=== PATIENT | female | born 1990 | race Caucasian/White ===

== ENCOUNTER 2017-01-12 08:54 | Emergency (ER) | payer OTHER ==
[~2017-01-12] VITALS: Ht 162.6 cm; Wt 88.5 kg
[2017-01-12 09:02] VITALS: Ht 162.6 cm; Wt 88.5 kg
[2017-01-12] MEDS ORDERED: ALBUT/IPRATROP 3MG/0.5MG NEB 3 ML VIAL ONE (09:11)
[2017-01-12] MEDS ORDERED: METHYLPREDNISOLONE 125 MG VIAL IV STA (09:21)
[2017-01-12 09:32] VITALS: O2SAT 88
[2017-01-12 09:41] LABS: BASO % 0.2 %; BASO ABS # 0.04 K/uL (0-0.2); COMPLETE YES; EOS % 2.7 %; HEMATOCRIT 47.5 % (37-47); IG% 0.4 %; LYMPH % 9.7 %; LYMPH ABS # 2.08 K/uL (1.2-3.4); MEAN CELL VOLUME 89.1 fL (80-100); MEAN CORPUSCULAR HEMOGLOBIN 32.6 pg (25-34); MEAN CORPUSCULAR HGB CONC 36.6 g/dl (32-36); MEAN PLATELET VOLUME 9.6 fL (7.4-10.4); PLATELET COUNT 325 K/uL (130-400); RED BLOOD COUNT 5.33 M/uL (4.2-5.4)
[2017-01-12 09:59] LABS: BUN/CREATININE RATIO 10.6 (10-20); CALCIUM 9.6 mg/dl (8.5-10.1); CREATININE 0.9 mg/dl (0.60-1.20); POTASSIUM 4.4 mmol/L (3.5-5.1)
[2017-01-12] MEDS ORDERED: ALBUT/IPRATROP 3MG/0.5MG NEB 3 ML VIAL INH STA ×2 (10:20→11:25)
--- NOTE | 2017-01-12 10:36 | DIAGNOSTIC IMAGING REPORT ---
TWO VIEW CHEST CLINICAL HISTORY: Atypical chest pain. Dyspnea. FINDINGS: PA and lateral chest radiographs are obtained. No prior studies are available for comparison at the time of dictation. The cardiomediastinal silhouette is unremarkable. The lungs and pleural spaces are clear. There is no pneumothorax. The bony thorax appears intact. IMPRESSION: No active disease in the chest. Electronically signed by: Gaston Shankar M.D. 01/12/2017 10:35 AM Dictated Date/Time: 01/12/2017 10:34 AM
[2017-01-12] MEDS ORDERED: CLR10 PO (11:06)
[2017-01-12] MEDS ORDERED: SODIUM CHLORIDE 0.9% 1000ML 500 ML IV STA (11:56)
[2017-01-12] MEDS ORDERED: OPTIRAY 320 IV PRN (12:00)
--- NOTE | 2017-01-12 13:01 | DIAGNOSTIC IMAGING REPORT ---
CT ANGIOGRAPHY OF THE CHEST, PULMONARY EMBOLUS PROTOCOL CLINICAL HISTORY: Wheezing, shortness of breath. Allergic reaction. COMPARISON STUDY: Chest radiograph performed earlier today. TECHNIQUE: Following IV administration of 93 mL of Optiray-320, helical axial images of the chest were obtained utilizing the pulmonary embolus protocol. Maximal intensity projections and sagittal and coronal reformats were viewed on an independent 3D workstation. IV contrast was administered without complication. A dose lowering technique was utilized adhering to the principles of ALARA. CT DOSE: 556.96 mGycm FINDINGS: No pulmonary emboli are identified. The size of the heart is normal. There is no pericardial effusion. There is no evidence of thoracic aortic dissection. There is a small to moderate amount of pneumomediastinum. No pneumothorax or pleural effusion is identified. There are mild multifocal airspace opacities within the lungs which suggest an infectious process. There is no cavitation. The bony thorax and upper abdomen are unremarkable. No enlarged thoracic lymph nodes are present. IMPRESSION: 1. No pulmonary emboli identified. 2. Mild to moderate pneumomediastinum of uncertain etiology. No pleural effusion or pneumothorax. 3. Mild multifocal airspace opacities within the lungs which suggest multifocal pneumonia. Electronically signed by: Arden Luis M.D. 01/12/2017 1:00 PM Dictated Date/Time: 01/12/2017 12:50 PM
[2017-01-12] MEDS ORDERED: PIPERACILLIN/TAZOBACTAM 4.5 GM/100ML D5W IV STA (13:17)
[2017-01-12] MEDS ORDERED: VANCOMYCIN INJ 2,250 MG in SODIUM CHLORIDE 0.9% 500ML 500 ML IV ONE (13:30)
[2017-01-12] MEDS ORDERED: ACETAMINOPHEN 500 MG TAB PO STA (14:02)
[2017-01-12 14:03] VITALS: TEMP 37.9
[2017-01-12] MEDS ORDERED: SODIUM CHLORIDE 0.9% 1000ML 1,000 ML IV STA (14:29)
[2017-01-12] MEDS ORDERED: LEVOFLOXACIN / D5W 750 MG IV ONE (14:30)
--- NOTE | 2017-01-12 15:08 | EMERGENCY ROOM VISIT NOTE ---
History First contact with patient: 09:05 Chief Complaint: SHORTNESS OF BREATH Stated Complaint: ALERGIC REACTION, TIGHT CHEST, HARD TO BREATH Nursing Triage Summary: Pt states, "My chest tight and I am having a heard time breathing. I recently moved to [place] and left my neb behind. Normally that would do the trick. A couple years ago I got a viral cold that they told me was similar to asthma. I had to get a neb and steroid pack. Every once in awhile I get this. It started yesterday." History of Present Illness Patient is a 26-year-old white female without significant past medical history who presents to the emergency department for evaluation of chest tightness and shortness of breath that began acutely yesterday morning. She states that she was feeling well prior to that and was in her usual state of health. She states that she noticed she was hard time breathing and some tightness in her chest. She has not been ill with any cold or upper respiratory symptoms, but does suffer from seasonal/environmental allergies for which she takes Claritin. The patient previously had a nebulizer machine with albuterol, which she was prescribed after a bronchitis illness. She has used this sporadically in the past, and it states that if she had it she would have used it yesterday, but she did not bring it with her when she moved locally about 3 weeks ago. She reports an infrequent, dry cough cough. She feels that it is difficult to take a full deep breath and she can hear herself wheezing. She denies any calf or leg pain or swelling, no recent prolonged travel or immobilization, and no oral contraceptives use. She is a former smoker. No personal or family history of DVT or PE. She has not had a fever. She denies any exposures to any potential allergy triggers. Review of Systems Review of systems as per HPI. All other systems reviewed were negative. 10 systems reviewed. Past Medical/Surgical History Medical Problems: (1) No Known Active Medical Problems The patient does not have any old records at our facility for review. Social History Smoking Status: Former Smoker Alcohol Use: none Housing Status: lives with family Occupation Status: employed Current/Historical Medications Scheduled Loratadine (Claritin), 10 MG PO DAILY Physical Exam Vital Signs Date Time Temp Pulse Resp B/P (MAP) Pulse Ox O2 Delivery O2 Flow Rate FiO2 01/12/17 15:35 116 23 93 Nasal Cannula 2.0 7/28/17 15:30 114 21 93 01/12/17 15:00 114 26 92 01/12/17 14:14 119 01/12/17 14:10 120 25 142/73 94 Nasal Cannula 2.0 01/12/17 14:03 37.9 01/12/17 12:53 124 24 91 Nasal Cannula 2.0 01/12/17 12:52 124 20 89 Room Air 01/12/17 11:20 135 24 127/89 90 Room Air 01/12/17 09:32 88 Room Air 01/12/17 09:27 92 Nasal Cannula 2.0 01/12/17 09:10 112 01/12/17 09:02 36.6 120 20 144/95 90 Room Air Physical Exam CONSTITUTIONAL: Patient is an overweight, 26-year-old white female who is awake and alert and in moderate distress due to her increased work of breathing. She is tachycardic with a heart rate in the 120s, respiratory rate 20. O2 sat 90% on room air. No conversational dyspnea noted. EYES: Pupils equal, round, reactive to light and accommodation. EOMs intact without nystagmus. Sclera are anicteric. ENT: Tympanic membranes intact, with normal landmarks. External canals are clear. Oral and nasopharynx are clear. Mucous membranes are moist, no lesions , tongue and gums appear normal. NECK: No bruits auscultated. No stridor. Supple without lymphadenopathy. No thyromegaly. No meningeal signs. Full active range of motion without discomfort. CARDIOVASCULAR: Tachycardic rate and rhythm, with normal S1 and S2, no murmur or gallop or rub is heard. No carotid bruits auscultated. No JVD. Peripheral pulses easy to palpable. RESPIRATORY: Breath sounds equal with inspiratory and expiratory wheezes noted throughout. Full and equal chest expansion without accessory muscle use or retractions. GI: Bowel sounds are present. Abdomen is soft, nontender, nondistended. No organomegaly. No pulsatile masses. No guarding or rebound. MUSCULOSKELETAL: Full range of motion of extremities x 4 with good strength. No cyanosis, edema, joint tenderness or swelling. No deformity. INTEGUMENTARY: No lesions or rash, normal skin turgor. NEUROLOGICAL: Alert, oriented, and cooperative. Cranial nerves, sensation and strength grossly intact. Pupils round, equal, and react to light, EOMs are full. LYMPH: No lymphadenopathy. Medical Decision & Procedures ER Provider Diagnostic Interpretation: CT ANGIOGRAPHY OF THE CHEST, PULMONARY EMBOLUS PROTOCOL CLINICAL HISTORY: Wheezing, shortness of breath. Allergic reaction. COMPARISON STUDY: Chest radiograph performed earlier today. TECHNIQUE: Following IV administration of 93 mL of Optiray-320, helical axial images of the chest were obtained utilizing the pulmonary embolus protocol. Maximal intensity projections and sagittal and coronal reformats were viewed on an independent 3D workstation. IV contrast was administered without complication. A dose lowering technique was utilized adhering to the principles of ALARA. CT DOSE: 556.96 mGycm FINDINGS: No pulmonary emboli are identified. The size of the heart is normal. There is no pericardial effusion. There is no evidence of thoracic aortic dissection. There is a small to moderate amount of pneumomediastinum. No pneumothorax or pleural effusion is identified. There are mild multifocal airspace opacities within the lungs which suggest an infectious process. There is no cavitation. The bony thorax and upper abdomen are unremarkable. No enlarged thoracic lymph nodes are present. IMPRESSION: 1. No pulmonary emboli identified. 2. Mild to moderate pneumomediastinum of uncertain etiology. No pleural effusion or pneumothorax. 3. Mild multifocal airspace opacities within the lungs which suggest multifocal pneumonia. TWO VIEW CHEST CLINICAL HISTORY: Atypical chest pain. Dyspnea. FINDINGS: PA and lateral chest radiographs are obtained. No prior studies are available for comparison at the time of dictation. The cardiomediastinal silhouette is unremarkable. The lungs and pleural spaces are clear. There is no pneumothorax. The bony thorax appears intact. IMPRESSION: No active disease in the chest. Laboratory Results 01/12/17 09:20 Red Blood Count 5.33, Mean Corpuscular Volume 89.1, Mean Corpuscular Hemoglobin 32.6, Mean Corpuscular Hemoglobin Concent 36.6, Mean Platelet Volume 9.6, Neutrophils (%) (Auto) 81.0, Lymphocytes (%) (Auto) 9.7, Monocytes (%) (Auto) 6.0, Eosinophils (%) (Auto) 2.7, Basophils (%) (Auto) 0.2, Neutrophils # (Auto) 17.33, Lymphocytes # (Auto) 2.08, Monocytes # (Auto) 1.29, Eosinophils # (Auto) 0.57, Basophils # (Auto) 0.04 01/12/17 09:20 Test 01/12/17 09:20 01/12/17 09:21 01/12/17 13:49 White Blood Count 21.40 K/uL (4.8-10.8) Red Blood Count 5.33 M/uL (4.2-5.4) Hemoglobin 17.4 g/dL (12.0-16.0) Hematocrit 47.5 % (37-47) Mean Corpuscular Volume 89.1 fL (80-100) Mean Corpuscular Hemoglobin 32.6 pg (25-34) Mean Corpuscular Hemoglobin Concent 36.6 g/dl (32-36) Platelet Count 325 K/uL (130-400) Mean Platelet Volume 9.6 fL (7.4-10.4) Neutrophils (%) (Auto) 81.0 % Lymphocytes (%) (Auto) 9.7 % Monocytes (%) (Auto) 6.0 % Eosinophils (%) (Auto) 2.7 % Basophils (%) (Auto) 0.2 % Neutrophils # (Auto) 17.33 K/uL (1.4-6.5) Lymphocytes # (Auto) 2.08 K/uL (1.2-3.4) Monocytes # (Auto) 1.29 K/uL (0.11-0.59) Eosinophils # (Auto) 0.57 K/uL (0-0.5) Basophils # (Auto) 0.04 K/uL (0-0.2) RDW Standard Deviation 39.9 fL (36.4-46.3) RDW Coefficient of Variation 12.3 % (11.5-14.5) Immature Granulocyte % (Auto) 0.4 % Immature Granulocyte # (Auto) 0.09 K/uL (0.00-0.02) Anion Gap 4.0 mmol/L (3-11) Est Creatinine Clear Calc Drug Dose 102.9 ml/min Estimated GFR () 103.0 Estimated GFR (Non- 88.9 BUN/Creatinine Ratio 10.6 (10-20) Calcium Level 9.6 mg/dl (8.5-10.1) Urine Test NEG (NEG) Bedside Lactic Acid Venous 6.06 mmol/L (0.90-1.70) Medications Administered Medications (Trade) Dose Ordered Sig/Max Route Start Time Stop Time Status Last Admin Dose Admin Albuterol/ Ipratropium (Duoneb) 3 ml STK-MED ONCE .ROUTE 01/12/17 09:11 01/12/17 09:12 DC 01/12/17 09:11 3 ML Methylprednisolone Sodium Succinate (Solu-Medrol IV) 125 mg NOW STAT IV 01/12/17 09:21 01/12/17 09:23 DC 01/12/17 09:37 125 MG Albuterol/ Ipratropium (Duoneb) 3 ml NOW STAT INH 01/12/17 10:20 01/12/17 10:21 DC 01/12/17 10:35 3 ML Albuterol/ Ipratropium (Duoneb) 3 ml NOW STAT INH 01/12/17 11:25 01/12/17 11:26 DC 01/12/17 11:40 3 ML Sodium Chloride 500 ml @ 999 mls/hr Q31M STAT IV 01/12/17 11:56 01/12/17 12:26 DC 01/12/17 11:56 999 MLS/HR Piperacillin Sod/ Tazobactam Sod (Zosyn Iv) 4.5 gm NOW STAT IV 01/12/17 13:17 01/12/17 13:24 DC 01/12/17 13:44 4.5 GM Vancomycin HCl 2250 mg/Sodium Chloride 545 ml @ 200 mls/hr NOW ONCE IV 01/12/17 13:30 01/12/17 16:13 DC 01/12/17 14:37 200 MLS/HR Acetaminophen (Tylenol Tab) 1,000 mg NOW STAT PO 01/12/17 14:02 01/12/17 14:03 DC 01/12/17 14:44 1,000 MG Levofloxacin 150 ml @ 100 mls/hr NOW ONCE IV 01/12/17 14:30 01/12/17 15:59 DC 01/12/17 14:53 100 MLS/HR Sodium Chloride 1,000 ml @ 250 mls/hr Q4H STAT IV 01/12/17 14:29 01/12/17 18:28 01/12/17 14:29 250 MLS/HR ECG Indication: SOB/dyspnea Rate (beats per minute): 111 Rhythm: sinus tachycardia Findings: no acute ischemic change, no ectopy Comparison ECG Date: no prior available ED Course She was seen and assessed as above. She was noted to be tachycardic, and borderline hypoxic upon initial presentation, with marked wheezing throughout. She was placed on a cardiac sonographer. IV lock was initiated. CBC, BMP were drawn. She was given Solu-Medrol 125 mg IV and hydrated with normal saline solution. She was given DuoNeb 3. Chest x-ray was obtained and was unremarkable. The patient was reassessed frequently. She had significant improvement in her wheezing after the third DuoNeb, but was persistently hypoxic with O2 sats in the upper 80s, subsequently was placed on 2 L nasal cannula oxygen. The patient history and presentation were reviewed with attending physician, and ED workup was agreed upon. CBC with differential noted a white count of 21,400, with left shift and bandemia. H&H 17 and 47. Electrolytes are unremarkable. Urine dip was clear and test was negative. Given the persistent hypoxia, chest CT was obtained to evaluate for PE. CT was negative for PE, but noted a mild to moderate pneumomediastinum of unclear etiology, and a multifocal pneumonia. [id number] lactic acid was drawn and was elevated at 6.0. Blood cultures 2 were obtained. She was given Zosyn 4.5 g IV, vancomycin 2250 mg IV and Levaquin 750 mg IV. Vital signs were rechecked and at this point patient was found to have a low-grade fever with a temperature 37.9C orally for which she was given 1 g of acetaminophen. All laboratory and diagnostic imaging studies were reviewed with attending physician and discuss with the patient at length. Attempts to discuss the patient with local thoracic surgeon were unsuccessful, therefore consultation was placed with thoracic surgery, Dr. Malagon, at [facility] who accepts the patient in transfer. Transfer consent and paperwork were completed. All questions were answered and the patient was comfortable with the treatment plan as was outlined to her. The patient remained hemodynamically stable pending transfer. Differential diagnosis includes acute myocardial infarction, acute coronary syndrome, myocarditis, pericarditis, pericardial effusions /tamponade, esophageal perforation, pulmonary embolism, pneumonia, pneumothorax, cardiomyopathy, congestive heart failure, anemia, COPD/asthma exacerbation, musculoskeletal, anxiety, costochondritis,. Medical Decision See Emergency Department course Medication Reconcilliation Current Medication List: was personally reviewed by me Blood Pressure Screening Patient's blood pressure: Elevated blood pressure Blood pressure disposition: Elevated BP felt to be situational Impression Primary Impression: Multifocal pneumonia Additional Impressions: Pneumomediastinum Hypoxia Departure Information Dispostion Transfer Acute Care Facility Referrals Abdi Oconnor M.D. (PCP) Patient Instructions [facility] Problem Qualifiers
--- NOTE | 2017-01-12 16:00 | EMERGENCY ROOM VISIT NOTE ---
ED Visit Note First contact with patient: 09:05 Staff note: I have reviewed the Patients chart and have discussed this case with my PA. I generally agree with the ED note and findings. Did discuss case initially with internal medicine but as there is no thoracic back this time they felt uncomfortable admitting the patient. Patient is resting comfortable at bedside. I do agree with the above treatment plan. Patient will be transferred following receiving fluids and IV antibiotics with pneumomediastinum and pneumonia on nasal cannula.
[2017-01-12 17:00] VITALS: BP 142/67; PULSE 116; O2SAT 96
== END 2017-01-12 17:07 | disposition short-term general hospital (02) ==
LOC: C.EDB 08:56 → C.EDA 17:07
DX: J18.9 Pneumonia, unspecified organism (principal); J98.2 Interstitial emphysema; R09.02 Hypoxemia; J30.2 Other seasonal allergic rhinitis; R00.0 Tachycardia, unspecified; Z87.891 Personal history of nicotine dependence